=== PATIENT | female | born 2005 | race Two or more races ===

== ENCOUNTER 2025-05-03 15:32 | Emergency (ER) | payer MEDICAID, SELFPAY ==
[2025-05-03 15:33] VITALS: BMI 22.4
[2025-05-03 15:56] VITALS: BP 119/74; PULSE 86; RESP 18; TEMP 36.8; O2SAT 100
--- NOTE | 2025-05-03 15:59 | XR_ITS ---
Examination: CT cervical spine without contrast 2-D sagittal reconstructions 2-D coronal reconstructions 3-D reconstructions. Exam date and time:May 03, 2025, 1617 hours INDICATIONS: Patient fell yesterday with injury to the neck, neck pain CTDI:vol (mGy) 12.8 DLP: (mGycm) 249 Technique: Multiple 2 mm axial sections of the cervical spine have been obtained. The coronal and sagittal reconstructions have been obtained. 3-D reconstructions have been obtained. Low dose protocols were performed. One or more of the following dose reduction techniques were used; automated exposure control, adjustment of the mA and/or KV according to patient size, use of iterative reconstruction technique. Findings: Axial sections demonstrate intact base of the skull. C1 exhibit satisfactory relationship to the odontoid. No acute cervical vertebral body fracture seen. Alignment posterior spinous processes satisfactory. Impression: No acute cervical fracture.
--- NOTE | 2025-05-03 15:59 | XR_ITS ---
Examination: CT maxillofacial, without intravenous contrast. 2-D sagittal reconstructions. 3-D reconstructions. Date and time of exam:May 03, 2025, 1617 hours INDICATIONS: Patient fell today with injury to the face, right facial swelling and pain CTDI: vol (mGy):12.8 DLP: (mGycm):226 Technique: Multiple axial images of maxillofacial region, 3.0 mm slice thickness. 2-D sagittal and coronal reconstructions. 3-D reconstructions. Low dose protocols were performed. One or more of the following dose reduction techniques were used; automated exposure control, adjustment of the mA and/or KV according to patient size, use of iterative reconstruction technique. Findings: Frontal and frontal sinuses are intact Fracture involving the right inferior orbital rim, coronal image 38, axial image 58 without significant displacement There is possible entrapment of the right inferior rectus muscle in this fracture, coronal image 38, the appearance should be clinically correlated No nasal bone fracture No depression zygomatic arches Maxilla and the mandible is intact There is soft tissue swelling external to the right nasal bone right maxillary antrum with a 7 x 6 mm hematoma external to the right zygomatic arch IMPRESSION: There is a fracture of the inferior right orbital rim, coronal image 38, axial image 58 and 59. There is possible entrapment of the right inferior rectus muscle, coronal image 38, the appearance should be clinically correlated There is soft tissue swelling external to the right nasal bone and right maxillary antrum with a 7 x 6 mm hematoma external to the right zygomatic arch.
--- NOTE | 2025-05-03 15:59 | XR_ITS ---
Examination: CT brain head without contrast. 2-D sagittal coronal reconstructions Date and time of exam:May 03, 2025, 1617 hours INDICATIONS: Patient fell today with injury to the head, head pain CTDI: vol (mGy):45.7 DLP: (mGycm):824 Technique: Multiple CT axial sections of the brain have been obtained, 5 mm slice thickness. Contrast has not been administered. 2-D sagittal, coronal reconstructions have been obtained Low dose protocols were performed. One or more of the following dose reduction techniques were used; automated exposure control, adjustment of the mA and/or KV according to patient size, use of iterative reconstruction technique. Findings: No significant ventricular enlargement. Intra-axial or extra-axial hemorrhage density is not seen. No mass effect or midline shift Basal cisterns are not remarkable. Fourth ventricle is midline. Cranial vault intact. Impression: Negative for acute hemorrhage, mass effect or midline shift Please see the CT maxillofacial report today
--- NOTE | 2025-05-03 15:59 | PD.EDRME ---
Rapid Medical Screening Exam E Arrival date/time: 05/03/25 15:32 This is a case of 19-year-old female with no medical history came in in the emergency room due to facial pain and hematoma history of present illness started yesterday when the patient fell in the pool and landed her face on the floor sustaining a contusion hematoma on her right face patient also complaining of neck pain no loss of consciousness Chief Complaint: Head Injury Vital signs: Vital Signs Temperature 98.3 F 05/03/25 15:56 Pulse Rate 86 05/03/25 15:56 Respiratory Rate 18 05/03/25 15:56 Blood Pressure 119/74 05/03/25 15:56 Pulse Oximetry (%) 100 05/03/25 15:56 Oxygen Delivery Method Room Air 05/03/25 15:56
[2025-05-03 17:35] LABS: HCG Qualitative,Urine Negative
[2025-05-03 19:24] VITALS: BP 121/74; PULSE 83; RESP 19; TEMP 37; O2SAT 100
--- NOTE | 2025-05-03 19:37 | PD.EDHEAD ---
ED Head Injury RME/HPI General Chief complaint: Head Injury Stated complaint: FELL AND HIT R FACE ON POOL CONCRETE YESTERDAY Time Seen by Provider: 05/03/25 19:29 Source: patient and family Arrival date/time: 05/03/25 15:32 Mode of arrival: ambulatory Limitations: no limitations RME / HPI RME / HPI Narrative: Patient is a healthy 19-year-old female with no past medical history. She is here today with right facial trauma. She states yesterday, she was at her family's house, jumped into a swing pool, and struck her face against the ledge. She denies any loss of consciousness, vision changes, nausea, vomiting. She states she does have a prescription for vision but does not have her glasses with her. She has no other acute complaints. Related Data Allergies Allergy/AdvReac Type Severity Reaction Status Date / Time No Known Allergies Allergy Verified 05/03/25 15:36 Review of Systems Review of Systems Systems Reviewed: All systems reviewed, normal except as documented ED Exam General Limitations: Present no limitations General appearance: Present alert and in no apparent distress Head Head exam: Present other (Erythema, purple discoloration, in the right periorbital region. No scalp depression. ) Eye Eye exam: Present normal appearance, PERRL, EOMI, periorbital swelling and other (No evidence of orbital entrapment. There is mild uptake of the fluorescein at 7:00.) ENT ENT exam: Present normal exam, normal oropharynx, mucous membranes moist and other (No dental injury no septal hematoma.) Neck Neck exam: Present normal inspection, full ROM and trachea midline Chest Chest inspection: Present normal inspection and symmetric chest wall rise Respiratory Respiratory exam: Present normal lung sounds bilaterally Cardiovascular Cardiovascular exam: Present regular rate, normal rhythm and normal heart sounds Abdominal Exam Abdominal exam: Present soft and normal bowel sounds Extremities Exam Extremities exam: Present normal inspection and full ROM Back Exam Back exam: Present normal inspection and full ROM Neurological Exam Neurological exam: Present alert, oriented X3 and CN II-XII intact Psychiatric Psychiatric exam: Present normal affect and normal mood Skin Skin exam: Present warm, dry, intact and normal color Course Quality Measures none Orders Category Date Time Status TDap [Obtain Tdap Consent] X1 Care 05/03/25 19:[address] cervical spine wo con Stat Exams 05/03/25 15:[address] facial bones wo con Stat Exams 05/03/25 15:[address] head/brain wo con Stat Exams 05/03/25 15:59 Completed HCG Qualitative,Urine Stat Lab 05/03/25 17:00 Completed Fluorescein Sodium [Bio-Beth] Med 05/03/25 19:36 Discontinued 1 mg RIGHT EYE X1 ONE Morphine Inj Med 05/03/25 19:37 Discontinued 2 mg IVP X1 ONE Jaquan/Poly/Hc (Cortisporin) [Cortisporin Op Oint] Med 05/03/25 20:35 Discontinued See Dose Instructions RIGHT EYE X1 ONE Jaquan/Poly/Hc (Cortisporin) [Cortisporin Op Oint] Med 05/03/25 20:54 Once See Dose Instructions RIGHT EYE X1 ONE Proparacaine Op Charlene 0.5% [Alcaine Op Charlene 0.5%] Med 05/03/25 19:36 Discontinued See Dose Instructions RIGHT EYE X1 ONE ceFAZolin/D5W 2 GM IV [Ancef 2gm Ivpb] Med 05/04/25 06:00 Pending 2 gm in 100 ml IV Q8HR ceFAZolin/D5W 2 GM IV [Ancef 2gm Ivpb] Med 05/03/25 19:45 Discontinued 2 gm in 100 ml IV X1 cephALEXin [Keflex] Med 05/03/25 20:53 Once 500 mg PO X1 ONE Vital Signs Vital signs: Vital Signs Temperature 98.3 F 05/03/25 15:56 Pulse Rate 86 05/03/25 15:56 Respiratory Rate 18 05/03/25 15:56 Blood Pressure 119/74 05/03/25 15:56 Pulse Oximetry (%) 100 05/03/25 15:56 Oxygen Delivery Method Room Air 05/03/25 15:56 Head Injury MDM Narrative MDM Narrative:: Patient is a healthy 19-year-old female with no past medical history. She is here today with right facial trauma. She states yesterday, she was at her family's house, jumped into a swing pool, and struck her face against the ledge. She denies any loss of consciousness, vision changes, nausea, vomiting. She states she does have a prescription for vision but does not have her glasses with her. She has no other acute complaints. On exam, patient is nontoxic-appearing. Vital signs are stable. She has no clinical evidence of orbital entrapment. No nystagmus is present. She does have linear uptake of fluorescein at 7:00 at the right eye. Patient was given antibiotics here. She will be discharged for outpatient follow-up. She agrees to use Tylenol and ibuprofen for comfort. She will continue cephalexin and the provided antibiotic ointment for her eye. She will contact outpatient surgery for follow-up. She has been referred to Dr. Gallardo, in [place], [place]. She is asked to return as needed for any worsening or emergent changes. Patient data External records reviewed:: None Clinical information provided by:: patient Social determinants that could affect healthcare access:: none Patient has the following chronic illnesses:: n/a How is presenting disease/condition affected by chronic disease/condition?: no chronic disease Evaluation data The following diagnostics were reviewed and interpreted by me:: lab results and radiology exam(s) (Inferior orbital fracture present) Lab and/or radiology exams considered but not ordered:: n/a Interpretation Summary: Orbital fracture Medications / Prescriptions Medications or Prescriptions considered but not ordered:: n/a Medication administrations:: Medication Administration History Cephalexin HCl (Cephalexin 250 Mg Capsule) 500 mg PO X1 ONE Stop: 05/03/25 20:54 Cefazolin Sodium (Ancef 2gm Ivpb) 2 gm in 100 mls @ 100 mls/hr IV Q8HR PAUL Stop: 05/11/25 05:59 Neomycin/Polymyxin/Hydrocortisone (Jaquan/Poly/Hc/Carina (Cortisporin) Op Oint 3.5 Gm Tube) 0 gm RIGHT EYE X1 ONE Stop: 05/03/25 20:55 Discontinued Medications Fluorescein Sodium (Fluorescein Sod 1 Mg Strp) 1 mg RIGHT EYE X1 ONE Stop: 05/03/25 19:37 Last Admin: 05/03/25 19:54 Dose: 1 mg Documented By: DARREN Comments: ADMIN BY PROVIDER Cefazolin Sodium (Ancef 2gm Ivpb) 2 gm in 100 mls @ 100 mls/hr IV X1 ONE Stop: 05/03/25 20:44 Last Infusion: 05/03/25 20:51 Dose: Infused Documented By: Admin: 05/03/25 19:55 Dose: 100 mls/hr Documented By: DARREN Morphine Sulfate (Morphine Sulf Inj 10 Mg/Ml Vial) 2 mg IVP X1 ONE Stop: 05/03/25 19:38 Last Admin: 05/03/25 19:51 Dose: 2 mg Documented By: DARREN Neomycin/Polymyxin/Hydrocortisone (Jaquan/Poly/Hc/Carina (Cortisporin) Op Oint 3.5 Gm Tube) 0 gm RIGHT EYE X1 ONE Stop: 05/03/25 20:36 Last Admin: 05/03/25 20:47 Dose: 1 drop Documented By: DARREN Comments: barcode wasnt scanning. med verified with johan mack Proparacaine HCl (Proparacaine Op Charlene 0.5% 15 Ml Btl) 0 drop RIGHT EYE X1 ONE Stop: 05/03/25 19:37 Last Admin: 05/03/25 19:54 Dose: 225 drop Documented By: DARREN Comments: ADMIN BY PROVIDER see above Consultations Consultation(s) initiated? (list below): No Diagnosis Differential diagnosis head injury: concussion without loss of consciousness, closed head injury, postconcussion syndrome and subdural hematoma Most likely diagnosis given after review of the tests above:: Orbital fracture Admission Indicated Admission indicated?: not indicated Admission Request Was there a request for admission?: No Disposition Plan Disposition Plan: Discharge Discharge Attestation Discharge Attestation: The patient and all family members were given an opportunity to ask questions and understood the discharge instructions. Discharge instructions specifically effects, indications for sooner follow up or return to the emergency department, and the expected course of current diagnosis. Patient condition: Stable Discharge Plan Plan Patient Disposition: HOME (Self Care) Patient condition on transfer: Stable Prescriptions/Referrals Referrals: No Primary/Family,Physician [Primary Care Provider] - In 1 week Problem List Clinical Impression: Orbital fracture, Abrasion, corneal Patient/Caregiver Discharge Instructions Education Materials: Corneal Injury, ED Facial Fracture Additional Instructions: - Use the provided antibiotic as prescribed. Will place you on Keflex 500 mg to take every 6 hours for the next week. You will also need to use prescribed antibiotic for your eye. -Use Tylenol and ibuprofen for comfort. - You will need to follow-up as an outpatient closely. He may follow-up with with a craniofacial surgeon. You can contact Dr. Gallardo in [place], [place] at [phone]. - Please return at anytime for any worsening changes including fevers or pain. Print Language: Nauruan Stand Alone Forms: Nicole Award Info., Patient Portal Info Letter
[2025-05-03] MEDS: MORPHINE SULF INJ 10 MG/ML VIAL 2 MG IVP (19:51)
[2025-05-03] MEDS: PROPARACAINE OP SOL 0.5% 15 ML BTL RIGHT EYE (19:54)
[2025-05-03] MEDS: FLUORESCEIN SOD 1 MG STRP RIGHT EYE (19:54)
[2025-05-03] MEDS: ceFAZolin/D5W 2 GM IV 2 GM/100 ML BAG IV (19:55)
[2025-05-03] MEDS: BAC RIGHT EYE (20:47)
[2025-05-03] MEDS: NEO RIGHT EYE (20:47)
[2025-05-03] MEDS: POLY RIGHT EYE (20:47)
[2025-05-03] MEDS: [UNRECOGNIZED DRUG - OTHER] RIGHT EYE (20:47)
[2025-05-03 21:08] VITALS: BP 121/74; PULSE 75; RESP 17; O2SAT 99
== END 2025-05-03 21:09 | disposition home or self-care (01) ==
PROVIDERS: Nurse Practitioner Family; Emergency Provider Emergency Medicine
DX: S02.31XA Fracture of orbital floor, right side, initial encounter for closed fracture (principal); S05.01XA Injury of conjunctiva and corneal abrasion without foreign body, right eye, initial encounter; S19.9XXA Unspecified injury of neck, initial encounter; W17.89XA Other fall from one level to another, initial encounter
CPT/HCPCS: 70450; 70486; 72125; 81025; 96365; 99284; J0689; J2270; A9270